=== PATIENT | female | born 1965 | race Caucasian/White ===

== ENCOUNTER 2017-09-22 11:28 | Day surgery (SDC) | payer OTHER ==
[~2017-09-22] VITALS: Ht 162.6 cm; Wt 67.2 kg
[~2017-09-22 11:28] MED LIST: CEPH-443 PO
[2017-09-22 12:58] VITALS: Ht 162.6 cm; Wt 67.2 kg
[2017-09-22] MEDS ORDERED: VITAMIN D (13:06)
[2017-09-22] MEDS ORDERED: ACYCLOVIR (13:06)
[2017-09-22] MEDS ORDERED: CITALOPRAM (13:06)
[2017-09-22] MEDS ORDERED: RANITIDINE (13:06)
[2017-09-22 13:20] VITALS: BP 119/74; PULSE 69; RESP 14
--- NOTE | 2017-09-22 14:01 | OPPN ---
Date/Time of Note Date/Time of Note DATE: 09/22/17 TIME: 13:59 Operative Report Preoperative Diagnosis Abdominal pain Screening Postoperative Diagnosis H pylori gastritis Sigmoid polyp was removed Internal hemorrhoids Operation/Procedure Performed Esophagogastroduodenoscopy and biopsy Colonoscopy and biopsy Surgeon see signature line assistant operator None Anesthesia: moderate sedation Estimated blood loss: none Transfusion Required none Specimen Gastric mucosal biopsy Sigmoid polyp Grafts/Implants none Complications none DEMETRIO FIGUEREDO MD Sep 22, 2017 14:01
[2017-09-22] MEDS ORDERED: FENTAnyl 50 MCG/ML VIAL ONE (14:03)
[2017-09-22] MEDS ORDERED: MIDAZOLAM 1 MG/ML 2 ML INJ ONE ×2 (14:03)
--- NOTE | 2017-09-22 14:17 | GILP ---
DATE OF PROCEDURE: 09/22/2017 NAME OF PROCEDURES: 1. Esophagogastroduodenoscopy and biopsy. 2. Colonoscopy and biopsy. SURGEON: Demetrio Meadows MD PREOPERATIVE DIAGNOSES: 1. Abdominal pain. 2. Screening colonoscopy. POSTOPERATIVE DIAGNOSES 1. Gastritis with erosions. 2. Biopsy was positive for Helicobacter pylori infection. 3. Colonoscopy all the way to the cecum. 4. Small sigmoid colon polyp was removed using the biopsy forceps. 5. Internal hemorrhoids. INDICATION FOR THE PROCEDURES: Ms. Deonna Machado is a 52-year-old female patient who was complain ing of upper abdominal pain, not responding to therapy. The patient had a history of positive stool occult blood test. The patient was scheduled for endoscopy and colonoscopy for further evaluation. The procedures and possible complications are well explained to the patient. The patient understood and consented to the procedure. DESCRIPTION OF PROCEDURE: Under the influence of fentanyl and Versed, the gastroscope was carefully introduced into the esophagus and under direct vision it was advanced to the stomach and through th e pylorus into the duodenal bulb and descending duodenum. FINDINGS: ESOPHAGUS: The mucosa was normal. STOMACH: The patient had gastritis with erosions. Biopsy was positive for Helicobacter pylori infe ction. DUODENUM: Normal. The colonoscope was carefully introduced in the rectum and under direct vision it was advanced all t he way to the cecum. FINDINGS: The patient had a sigmoid colon polyp and it was removed using the biopsy forceps. She h ad internal hemorrhoids. She tolerated the procedures very well and there was no complication from the procedures. At the en d of the procedures, she was awake with stable vital signs and she was discharged home to the care o f her family. IMPRESSION: Please see postoperative diagnoses. PLAN: 1. Zantac 300 mg p.o. b.i.d. for 14 days. 2. Doxycycline 100 mg p.o. b.i.d. for 14 days. 3. Flagyl 500 mg p.o. b.i.d. for 14 days. 4. Pepto-Bismol 2 tablets p.o. q.i.d. for 14 days. 5. Next screening colonoscopy in 10 years. Dictated By: DEMETRIO BERMEO/GERONIMO Conf#: [id number] DID#: [id number]
[2017-09-22 14:20] VITALS: BP 107/73; PULSE 72; RESP 18
== END 2017-09-22 19:44 | disposition home or self-care (01) ==
LOC: GIL 11:28
PROVIDERS: ATTEND Internal Medicine Gastroenterology
DX: Z12.11 Encounter for screening for malignant neoplasm of colon (principal); K64.8 Other hemorrhoids; K29.70 Gastritis, unspecified, without bleeding
CPT/HCPCS: 43239; 45380; 84703; 87081; 88305; J2250; J3010